=== PATIENT | female | born 1985 | race Caucasian/White ===

== ENCOUNTER 2018-06-25 20:51 | Emergency (ER) | payer MEDICAID ==
--- NOTE | 2018-06-25 21:03 | EDM.PDOC ---
ED HPI GENERAL MEDICAL PROBLEM - General Chief Complaint: Gastrointestinal Problem Stated Complaint: Abd Pain; N/V/D Time Seen by Provider: 06/25/18 20:51 Source of Information: Reports: Patient, RN, RN Notes Reviewed History Limitations: Reports: No Limitations - History of Present Illness INITIAL COMMENTS - FREE TEXT/NARRATIVE: Patient presents to the ED at [facility] for the evaluation of N/V/D and abd pain that started around 5pm this evening. No recent travel. No changes with any medications. 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 No close contacts with similar symptoms. No fevers or chills. The patient states her abdominal pain is lower right to left. Diarrhea has been foul smelling and very watery. Patient has a decrease in appetite. Has not been drinking much due to nausea. Otherwise, no other concerns. Onset: Today Onset Date: 06/25/18 Onset Time: 17:00 - Related Data Allergies Allergy/AdvReac Type Severity Reaction Status Date / Time No Known Allergies Allergy Verified 03/16/18 18:05 Home Meds: Home Meds Nitrofurantoin Macrocrystal [Macrodantin] 100 mg PO BID 6 Days #12 capsule 03/16 [Rx] Past Medical History - Past Health History Medical/Surgical History: Denies Medical/Surgical History HEENT History: Reports: None Cardiovascular History: Reports: None Respiratory History: Reports: None Gastrointestinal History: Reports: Other (See Below) Other Gastrointestinal History: Umbilical hernia Genitourinary History: Reports: None 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 Musculoskeletal History: Reports: None Neurological History: Reports: None Psychiatric History: Reports: Depression Endocrine/Metabolic History: Reports: Other (See Below) Other Endocrine/Metabolic History: Increased BMI Hematologic History: Reports: None Immunologic History: Reports: None Oncologic (Cancer) History: Reports: None Dermatologic History: Reports: None - Past Surgical History Head Surgeries/Procedures: Reports: None HEENT Surgical History: Reports: None Cardiovascular Surgical History: Reports: None Respiratory Surgical History: Reports: None GI Surgical History: Reports: Cholecystectomy Female Surgical History: Reports: Tubal Ligation Endocrine Surgical History: Reports: None Neurological Surgical History: Reports: None Musculoskeletal Surgical History: Reports: None Oncologic Surgical History: Reports: None Dermatological Surgical History: Reports: None Social & Family History - Living Situation & Occupation Living situation: Reports: with Significant Other, with Family Occupation: Unemployed ED ROS GENERAL - Review of Systems Review Of Systems: See Below Constitutional: Reports: Decreased Appetite. Denies: Fever, Chills Respiratory: Denies: Shortness of Breath, Cough Cardiovascular: Denies: Chest Pain, Palpitations GI/Abdominal: Reports: Abdominal Pain, Diarrhea, Nausea, Vomiting Skin: Reports: No Symptoms Neurological: Reports: No Symptoms ED EXAM, GI/ABD - Physical Exam Exam: See Below Exam Limited By: No Limitations General Appearance: Alert, No Apparent Distress Respiratory/Chest: No Respiratory Distress, Lungs Clear, Normal Breath Sounds Cardiovascular: Normal Peripheral Pulses, Regular Rate, Rhythm GI/Abdominal Exam: Guarding, Rigid, Tender (generalized), Abnormal Bowel Sounds (Hypoactive) Neurological: Alert, Oriented Skin Exam: Warm, Dry, Intact, Normal Color Course - Orders/Labs/Meds Orders: Active Orders 24 hr Category Date Time Status Abdomen Pelvis w Cont [CT] Stat Exams 06/25/18 21:04 Taken C DIFFICILE TOXIN BY PCR [MREF] Stat Lab 06/25/18 22:00 Received STOOL CULTURE/SHIGA TOXIN [MREF] Stat Lab 06/25/18 22:00 Received Sodium Chloride 0.9% [Saline Flush] Med 06/25/18 21:04 Active 10 ml FLUSH ASDIRECTED PRN Peripheral IV Insertion Adult [OM.PC] Routine Oth 06/25/18 21:04 Ordered Medication Orders Sodium Chloride (Saline Flush) 10 ml FLUSH ASDIRECTED PRN PRN Reason: Keep Vein Open Labs: Laboratory Tests 06/25/18 06/25/18 06/25/18 Range/Units 21:15 21:18 21:18 WBC 6.6 (4.0-10.0) x10^3/uL RBC 4.41 (4.00-5.50) x10^6/uL Hgb 13.7 D (12.0-16.0) g/dL Hct 42.1 (33.0-47.0) % MCV 95.5 H (78.0-93.0) fL MCH 31.1 (26.0-32.0) pg MCHC 32.5 (32.0-36.0) g/dL RDW Coeff of Terrence 12.8 (10.0-15.0) % Plt Count 200 (130-400) x10^3/uL Neut % (Auto) 77.4 (50.0-80.0) % Lymph % (Auto) 14.3 L (25.0-50.0) % Spencer % (Auto) 7.5 (2.0-11.0) % Eos % (Auto) 0.3 (0.0-4.0) % Baso % (Auto) 0.5 (0.2-1.2) % Sodium 143 (136-145) mmol/L Potassium 3.8 (3.5-5.1) mmol/L Chloride 105 (98-107) mmol/L Carbon Dioxide 26 (21-32) mmol/L Anion Gap 15.8 (10-20) mmol/L BUN 5 L (7-18) mg/dL Creatinine 0.6 (0.55-1.02) mg/dL Est Cr Clr Drug Dosing TNP Estimated GFR (MDRD) > 60 Glucose 105 (74-106) mg/dL Calcium 8.2 L (8.5-10.1) mg/dL Corrected Calcium 8.68 (8.5-10.1) mg/dL Total Bilirubin 0.3 (0.2-1.0) mg/dL AST 16 (15-37) U/L ALT 18 (14-59) U/L Alkaline Phosphatase 124 H (46-116) U/L Total Protein 6.6 (6.4-8.2) g/dL Albumin 3.4 (3.4-5.0) g/dL Globulin 3.2 Albumin/Globulin Ratio 1.06 Amylase 24 L (25-115) U/L Lipase 89 (73-393) U/L Urine Color Dark yellow H (YELLOW) Urine Appearance Clear (CLEAR) Urine pH 5.5 (5.0-8.0) Ur Specific [place] 1.010 Urine Protein Negative (NEGATIVE) mg/dL Urine Glucose (UA) Negative (NEGATIVE) mg/dL Urine Ketones Negative (NEGATIVE) mg/dL Urine Occult Blood Negative (NEGATIVE) Urine Nitrite Negative (NEGATIVE) Urine Bilirubin Negative (NEGATIVE) Urine Urobilinogen 0.2 (0.2) EU/dL Ur Leukocyte Esterase Negative (NEGATIVE) Meds: Medications Generic Name Dose Route Start Last Admin Trade Name Freq PRN Reason Stop Dose Admin Sodium Chloride 10 ml 06/25/18 21:04 Saline Flush FLUSH ASDIRECTED PRN Keep Vein Open Discontinued Medications Generic Name Dose Route Start Last Admin Trade Name Jaswant PRN Reason Stop Dose Admin Sodium Chloride 1,000 mls @ 999 mls/hr 06/25/18 21:05 06/25/18 21:20 Normal Saline IV 06/25/18 22:05 999 mls/hr ONETIME ONE Administration Iopamidol 100 ml 06/25/18 21:42 06/25/18 21:55 Isovue-300 (61%) IVPUSH 06/25/18 21:43 100 ml ONETIME ONE Administration Ondansetron HCl 4 mg 06/25/18 21:05 06/25/18 21:22 Zofran IVPUSH 06/25/18 21:06 4 mg ONETIME ONE Administration - Radiology Interpretation Free Text/Narrative:: CT Abd/Pelvis w/contrast: Mild mesenteric adenitis, new See scanned report in EMR for details CT Results Date: 06/25/18 CT Results Time: 22:30 Departure - Departure Time of Disposition: 22:36 Disposition: Home, Self-Care 01 Condition: Good Clinical Impression: Viral enteritis - Discharge Information *PRESCRIPTION DRUG MONITORING PROGRAM REVIEWED*: Not Applicable *COPY OF PRESCRIPTION DRUG MONITORING REPORT IN PATIENT BRO: Not Applicable Instructions: Viral Gastroenteritis, Adult Referrals: Anny Baca [facility] [Primary Care Provider] - Forms: ED Department Discharge Additional Instructions: 1. LOTS of hydration 2. May try Imodium for diarrhea 3. Eat a bland diet 4. Nothing appears contagious at this point 5. Will let you know if your stool testing is positive for anything 6. No work restrictions 7. See your Primary as symptoms warrant - Problem List Review Problem List Initiated/Reviewed/Updated: Yes - My Orders Last 24 Hours: My Active Orders 06/25/18 21:04 Abdomen Pelvis w Cont [CT] Stat Sodium Chloride 0.9% [Saline Flush] 10 ml FLUSH ASDIRECTED PRN Peripheral IV Insertion Adult [OM.PC] Routine 06/25/18 22:00 C DIFFICILE TOXIN BY PCR [MREF] Stat STOOL CULTURE/SHIGA TOXIN [MREF] Stat - Assessment/Plan Last 24 Hours: My Active Orders 06/25/18 21:04 Abdomen Pelvis w Cont [CT] Stat Sodium Chloride 0.9% [Saline Flush] 10 ml FLUSH ASDIRECTED PRN Peripheral IV Insertion Adult [OM.PC] Routine 06/25/18 22:00 C DIFFICILE TOXIN BY PCR [MREF] Stat STOOL CULTURE/SHIGA TOXIN [MREF] Stat Assessment:: Viral Gastroenteritis Plan: Assessment, labs, and CT findings discussed with patient. Symptoms appear to be consistent with viral enteritis. Recommend bland diet, rest, LOTS of hydration. May try Imodium OTC for diarrhea. See PCP as symptoms warrant.
[2018-06-25] MEDS ORDERED: Sodium Chloride 0.9% 10 ML Syringe FLUSH PRN (21:04)
[2018-06-25] MEDS ORDERED: Ondansetron 4 MG/2 ML SDV IVPUSH ONE (21:05)
[2018-06-25] MEDS ORDERED: Sodium Chloride 0.9% 1,000 ML IV ONE (21:05)
[2018-06-25] MEDS ORDERED: Iopamidol 612 MG/ML 100 ML Bottle IVPUSH ONE (21:42)
[2018-06-25 21:46] LABS: CHLORIDE,CL 105 mmol/L (98-107); SODIUM,NA 143 mmol/L (136-145)
[2018-06-25 21:53] LABS: ANION GAP 15.8 mmol/L (10-20)
--- NOTE | 2018-06-26 13:36 | CT ---
[id number] CT/CT Abdomen Pelvis W IV EXAM: CT Abdomen Pelvis W IV CLINICAL DATA: ABDOMINAL PAIN, NAUSEA, VOMITING, DIARRHEA. COMPARISON STUDY: None. FINDINGS: Lung bases are clear. Liver, spleen, pancreas, adrenal glands, and kidneys are unremarkable. The gallbladder surgically absent. There is circumferential prominence of the small bowel wall with multiple prominent mesenteric lymph nodes. The appendix is visualized and appears normal. No free fluid, or pneumoperitoneum. Scattered changes of spondylosis the spine. No fracture or osseous lesion. IMPRESSION: Circumferential prominence of the small bowel wall with multiple prominent mesenteric lymph nodes. Given the clinical symptoms, this could be seen with acute enteritis. Carlitos Flowers DO 06/26/18 [id number] Thank you for allowing us to participate in the care of your patient.
== END 2018-06-25 22:45 | disposition home or self-care (01) ==
LOC: VM.ED 20:51
DX: A08.4 Viral intestinal infection, unspecified (principal)
CPT/HCPCS: 74177; 80053; 81003; 82150; 83690; 85025; 87045; 87046; 87493; 87899; 96361; 96374; 99284; J2405; J7030; Q9967